=== PATIENT | female | born 1985 | race Two or more races ===

== ENCOUNTER 2017-03-17 07:15 | Day surgery (SDC) | payer BC ==
[2017-03-17] VITALS (10 sets, daily range): BP systolic 100–111; BP diastolic 57–77; PULSE 58–72; RESP 12–24; Ht 162.6 cm; Wt 69.4 kg
[~2017-03-17] VITALS: Ht 162.6 cm; Wt 69.4 kg
[2017-03-17] MEDS ORDERED: SOD CHLORIDE 0.9% 1,000 ML IV SCH (10:00)
[2017-03-17] MEDS ORDERED: CEFAZOLIN 1 GM/50 ML (PMX) 50 ML IVPB SCH (10:00)
[2017-03-17] MEDS ORDERED: BUPIVACAINE 0.25% (MPF) 30 ML INJ ONE (10:43)
[2017-03-17] MEDS ORDERED: MIDAZOLAM 1 MG/ML 2 ML INJ ONE (11:35)
[2017-03-17] MEDS ORDERED: FENTAnyl 50 MCG/ML VIAL ONE (11:35)
[2017-03-17] MEDS ORDERED: PROPOFOL 20 ML ONE (11:45)
[2017-03-17] MEDS ORDERED: LIDOCAINE 2% (SDV) 5 ML INJ ONE (11:45)
[2017-03-17] MEDS ORDERED: CEFAZOLIN 1 GM INJ ONE (11:46)
[2017-03-17] MEDS ORDERED: ONDANSETRON 4 MG INJ ONE (12:11)
--- NOTE | 2017-03-17 12:26 | OPR ---
DATE OF OPERATION: 03/17/2017 INDICATION: This is a 31-year-old female with a large left shoulder mass. She requests surgical ex cision of the left shoulder tumor. The risks, alternatives, benefits, and personnel were discussed with the patient. The patient expressed understanding and consented to the operation. PREOPERATIVE DIAGNOSIS: Left shoulder tumor. POSTOPERATIVE DIAGNOSIS: Left shoulder tumor. OPERATION PERFORMED: 1. Excision of left shoulder tumor with a 5-cm size incision and a 5-cm size mass. 2. Reposition of contiguous tissues with localized adjacent tissue transfer with the use of skin fl aps, approximately 5 x 3 cm, equaling 15 cm2 [place]. [place] [address]. 3. Therapeutic injection of Marcaine [place]cut[place] [address]. SURGEON: Janes Chavarria MD SPECIMEN: Left shoulder tumor, 5 cm. COMPLICATIONS: None. ANESTHESIA: General. DESCRIPTION OF PROCEDURE: The patient was taken to the OR and prepped and draped in the usual steri le fashion. Surgical time-out was performed. IV antibiotics were given. An incision was made ball sversely over the left shoulder with a 15 blade. Dissection cautery was carried down to the mass an d circumferentially excised. There was good hemostasis. Due to the large tissue defect, skin flaps were raised on both sides of the incision and reapproximation was performed in a multilayer fashion with interrupted 3-0 Vicryl and closures with running 4-0 Monocryl. Subcutaneous injection was per formed with Marcaine. Dry dressings were applied. Dictated By: JANES BARFIELD/LUKE Conf#: [id number] DID#: [id number]
[2017-03-17] MEDS ORDERED: HYDROmorphONE (0.2 MG/ML) 10ML SYG IV PRN ×2 (12:30)
[2017-03-17] MEDS ORDERED: ONDANSETRON 4 MG INJ IV PRN (12:30)
[2017-03-17] MEDS ORDERED: HYDROCODONE/APAP (5/325) TAB PO ONE (12:30)
[2017-03-17] MEDS ORDERED: DIPHENHYDRAMINE 50 MG INJ IV PRN (12:30)
[2017-03-17] MEDS ORDERED: FENTAnyl 50 MCG/ML VIAL IV PRN (12:30)
[2017-03-17] MEDS ORDERED: MEPERIDINE 25 MG INJ IV PRN (12:30)
== END 2017-03-17 13:55 | disposition home or self-care (01) ==
LOC: SDS 07:15
PROVIDERS: ATTEND Surgery
DX: D17.22 Benign lipomatous neoplasm of skin and subcutaneous tissue of left arm (principal)
CPT/HCPCS: 14020; 84703; 88307; J0690; J2250; J2405; J3010; Z7512; Z7610